=== PATIENT | female | born 1940 | race Asian ===

== ENCOUNTER 2018-03-11 07:32 | Emergency (ER) | payer MEDICARE, MEDICAID ==
[~2018-03-11] VITALS: Ht 162.6 cm; Wt 83.2 kg
[2018-03-11 08:00] VITALS: BP 136/78
--- NOTE | 2018-03-11 10:07 | NUR ---
TO ROOM FROM LOBBY.
[2018-03-11] MEDS ORDERED: HYDROcodone/APAP 5/325 TABLET PO ONE (10:30)
[2018-03-11] MEDS ORDERED: HYDROcodone/APAP 5/325 TABLET ONE (10:32)
== END 2018-03-11 11:30 | disposition home or self-care (01) ==
LOC: ED 10:21
DX: M13.162 Monoarthritis, not elsewhere classified, left knee (principal); G89.29 Other chronic pain; I10 Essential (primary) hypertension; E78.00 Pure hypercholesterolemia, unspecified
CPT/HCPCS: 99284